=== PATIENT | male | born 1960 | race Two or more races ===

== ENCOUNTER 2025-05-02 11:00 | Day surgery (SDC) | payer MEDICARE, MEDICAID, SELFPAY ==
--- NOTE | 2025-05-01 05:00 | EKG_ITS ---
[facility] Test Date: 2025-05-01 Pat Name: SHLOMO BUTLER Department: Room: - Gender: Male Police Chief Deputy: RT STUDENT : 1960 Requested By: Polo Mccabe Order Number: [id number] Reading MD: Polo Mccabe Measurements Intervals [place] Rate: 53 P: 38 CO: 156 QRS: 5 QRSD: 92 T: 39 QT: 397 QTc: 376 Interpretive Statements SINUS BRADYCARDIA Compared to ECG 06/07/2024 08:40:39 No significant changes /store/S0/[id number].pdf
[2025-05-01 08:03] LABS: Alanine Aminotransferase 15 U/L (10-49); Albumin, Serum 4.5 gm/dL (3.4-4.8); Albumin/Globulin Ratio 1.5 (1.2-2.2); Alkaline Phosphatase 81 U/L (46-116); Anion Gap 9 (7-16); Aspartate Amino Transferase 22 U/L (0-34); BUN/Creatinine Ratio 7 Ratio (12-20); Bilirubin,Total 0.5 mg/dL (0.3-1.2); Blood Urea Nitrogen 8 mg/dL (9-23); Calcium 9.5 mg/dL (8.3-10.6); Calcium (Corrected) 9.5 mg/dL (8.5-10.1); Carbon Dioxide 28.7 mMol/L (20.0-31.0); Chloride 105 mMol/L (98-107); Creatinine (Component) 1.1 mg/dL (0.6-1.3); Globulin 3.0 gm/dL (2.3-3.5); Glucose 105 mg/dL (74-106); Osmolality,Calculated 283 (275-295); Potassium 4.6 mMol/L (3.4-5.1); Sodium 143 mMol/L (136-145); Total Protein 7.5 gm/dL (5.7-8.2); eGFR > 60 See Note
[2025-05-01 14:40] VITALS: BMI 28.3
--- NOTE | 2025-05-02 09:47 | EKG_ITS ---
[facility] Test Date: 2025-05-02 Pat Name: SHLOMO BUTLER Department: Room: - Gender: Male Extrusion Process Operator: BEVERLY : 1960 Requested By: Polo Mccabe Order Number: [id number] Reading MD: Polo Mccabe Measurements Intervals [place] Rate: 60 P: 63 IN: 170 QRS: 21 QRSD: 95 T: 34 QT: 400 QTc: 400 Interpretive Statements SINUS RHYTHM Compared to ECG 05/01/2025 07:21:32 Sinus bradycardia no longer present /store/S0/[id number]/[id number].pdf
[2025-05-02 11:52] VITALS: BP 149/71; PULSE 60; RESP 14; TEMP 37; O2SAT 95; BMI 26.8
[2025-05-02] MEDS: RINGERS LACTATED 1000 ML 1,000 ML 20 ML IV (12:05)
[2025-05-02 13:11] LABS: Alanine Aminotransferase 14 U/L (10-49); Albumin, Serum 4.2 gm/dL (3.4-4.8); Albumin/Globulin Ratio 1.8 (1.2-2.2); Alkaline Phosphatase 85 U/L (46-116); Anion Gap 9 (7-16); Aspartate Amino Transferase 23 U/L (0-34); BUN/Creatinine Ratio 7 Ratio (12-20); Bilirubin,Total 0.7 mg/dL (0.3-1.2); Blood Urea Nitrogen 8 mg/dL (9-23); Calcium 9.2 mg/dL (8.3-10.6); Calcium (Corrected) 9.2 mg/dL (8.5-10.1); Carbon Dioxide 26.6 mMol/L (20.0-31.0); Chloride 105 mMol/L (98-107); Creatinine (Component) 1.1 mg/dL (0.6-1.3); Estimated Creatinine Clearance 66.1 mL/min (>60); Globulin 2.3 gm/dL (2.3-3.5); Glucose 76 mg/dL (74-106); Osmolality,Calculated 278 (275-295); Potassium 3.9 mMol/L (3.4-5.1); Sodium 141 mMol/L (136-145); Total Protein 6.5 gm/dL (5.7-8.2); eGFR > 60 See Note
[2025-05-02 14:09] VITALS: BP 131/61; PULSE 61; RESP 18; TEMP 36.2; O2SAT 97
[2025-05-02 14:14] VITALS: BP 138/66; PULSE 60; RESP 19; O2SAT 97
[2025-05-02 14:19] VITALS: BP 137/60; PULSE 59; RESP 15; O2SAT 95
[2025-05-02 14:30] VITALS: BP 143/74; PULSE 60; RESP 14; TEMP 36.4; O2SAT 97
--- NOTE | 2025-05-02 14:35 | SUR.PHASEII ---
1409: Pt received in [facility] via [facility]. Report from Char MENEZES. Pt groggy, but awake. Resp even, unlabored. VS stable. Denies pain. 1436: Pt resting with no complaints voiced. Resp even, unlabored. VS stable. Denies pain. Sitting up tolerating po fluids with no difficulty swallowing and no n/v.
[2025-05-02 14:45] VITALS: BP 146/76; PULSE 67; RESP 20; TEMP 36.5; O2SAT 95
--- NOTE | 2025-05-02 15:23 | SUR.PHASEII ---
1500: Pt fully awake, oriented x3. VS stable. Denies pain. Pt and stated understanding of discharge instructions. Pt discharged from [facility] in stable condition.
== END 2025-05-02 15:00 | disposition home or self-care (01) ==
PROVIDERS: Anesthesiology; PCP Physician Assistant; Referring Provider Internal Medicine Gastroenterology; Visit Provider Internal Medicine Gastroenterology
PROC: 0DJD8ZZ Inspection of Lower Intestinal Tract, Via Natural or Artificial Opening Endoscopic (ICD-10-PCS; CPT 45378; principal; 2025-05-02 12:15)
PROC: (CPT 43239; 2025-05-02 12:15)
DX: K29.51 Unspecified chronic gastritis with bleeding (principal); I10 Essential (primary) hypertension; K62.89 Other specified diseases of anus and rectum; Z01.810 Encounter for preprocedural cardiovascular examination; I25.10 Atherosclerotic heart disease of native coronary artery without angina pectoris; I25.2 Old myocardial infarction; K52.9 Noninfective gastroenteritis and colitis, unspecified
CPT/HCPCS: 45380; 36415; 80053; 93005; A4217; A4649; J7120; A9270